=== PATIENT | male | born 1990 | race Caucasian/White ===

== ENCOUNTER 2016-04-18 09:59 | Emergency (ER) | payer SELFPAY ==
[~2016-04-18] VITALS: Ht 177.8 cm; Wt 106.8 kg
[~2016-04-18 09:59] MED LIST: ALBU8.5H IH; LORA10TA7 PO
[2016-04-18 13:41] VITALS: BP 128/84
== END 2016-04-18 13:43 | disposition home or self-care (01) ==
LOC: EMS 10:00
DX: F12.90 Cannabis use, unspecified, uncomplicated (principal); R11.2 Nausea with vomiting, unspecified; J45.909 Unspecified asthma, uncomplicated; F17.210 Nicotine dependence, cigarettes, uncomplicated
CPT/HCPCS: 99283

== ENCOUNTER 2021-06-28 20:01 | Inpatient (IN) | payer MEDICAID, OTHER ==
[~2021-06-28] VITALS: Ht 172.7 cm; Wt 86.9 kg
[~2021-06-28 20:01] MED LIST changes: -ALBU8.5H IH; +ALBU8.5H8 IH
[2021-06-28 20:46] LABS: BASOPHILS % (AUTO) 0.7 % (0.0-2.0); EOSINOPHILS % (AUTO) 0.3 % (1.0-6.0); HEMATOCRIT 42.3 % (41-53); HEMOGLOBIN 14.3 g/dL (13.5-17.5); LYMPHOCYTES # (AUTO) 2.3 K/uL (1.0-4.8); LYMPHOCYTES % (AUTO) 44.8 % (22.0-44.0); MEAN CORPUSCULAR HEMOGLOBIN 31.7 pg (26.0-34.0); MEAN CORPUSCULAR HGB CONC 33.8 G/dL (31.0-37.0); MEAN CORPUSCULAR VOLUME 94 fL (80-100); MONOCYTES # (AUTO) 0.3 K/uL (0.1-1.0); MONOCYTES % (AUTO) 6.2 % (2.0-9.0); NEUTROPHILS # (AUTO) 2.5 K/uL (1.8-7.7); PLATELET COUNT (AUTO) 187 K/uL (150-450); RED BLOOD CELL COUNT(AUTO) 4.51 MIL/uL (4.50-5.90); RED CELL DISTRIBUTION WIDTH 13.8 % (11.5-14.5)
[2021-06-28 20:50] LABS: COVID AG,FIA SOURCE NASAL SWAB
[2021-06-28 20:54] LABS: ANION GAP 14 mmol/L (8-16); CALCIUM, TOTAL 8.5 mg/dL (8.8-10.5); CARBON DIOXIDE 26 mmol/L (22-29); CHLORIDE 104 mmol/L (98-107); CREATININE 0.88 mg/dL (0.60-1.30); GLOMERULAR FILTR. RATE CALC > 60 mL/min (>60); GLUCOSE,RANDOM 123 mg/dL (70-110); POTASSIUM 3.7 mmol/L (3.5-5.1); SODIUM SERUM 144 mmol/L (136-145); UREA NITROGEN, BLOOD 8 mg/dL (7-18)
[2021-06-28 21:00] LABS: ALANINE AMINOTRANSFERASE 47 U/L (12-78); ALBUMIN 4.2 g/dL (3.4-5.0); ALKALINE PHOSPHATASE 59 U/L (46-116); ASPARTATE AMINOTRANSFERASE 39 U/L (15-37); BILIRUBIN,TOTAL 0.2 mg/dL (0.1-1.0); TOTAL PROTEIN, SERUM 8.2 g/dL (6.4-8.2)
[2021-06-28 23:26] LABS: LIPASE 540 U/L (73-393)
[2021-06-29] VITALS (7 sets, daily range): BP systolic 117–144; BP diastolic 64–88
[2021-06-29] MEDS: LORazepam 2 MG TABLET PO PRN ×2 (00:01→13:19)
[2021-06-29] MEDS ORDERED: MAGNESIUM HYDROXIDE SUSPENSION 30 ML UDCUP PO PRN (07:00)
[2021-06-29] MEDS ORDERED: DOCUSATE SODIUM 100 MG CAPSULE PO PRN (07:00)
[2021-06-29] MEDS ORDERED: ALBUTEROL SULFATE HFA 90 MCG/PUFF 8 GM INHALER IH PRN (07:00)
[2021-06-29] MEDS ORDERED: PETROLATUM,WHITE 28 GM JELLY TP PRN (07:00)
[2021-06-29] MEDS ORDERED: IBUPROFEN 400 MG TABLET PO PRN (07:00)
[2021-06-29] MEDS ORDERED: ONDANSETRON HCL 4 MG TABLET PO PRN (07:00)
[2021-06-29] MEDS ORDERED: GuaiFENesin/D-METHORPHAN [SUGAR-FREE] 200-20MG/10 ML SYRUP UDCUP PO PRN (07:00)
[2021-06-29] MEDS ORDERED: MAG HYDROX/AL HYDROX/SIMETH ES 30 ML SUSPENSION UDCUP PO PRN (07:00)
[2021-06-29] MEDS ORDERED: ACETAMINOPHEN 325 MG TABLET PO PRN (07:00)
[2021-06-29] MEDS ORDERED: LOPERAMIDE HCL 2 MG CAPSULE PO PRN (07:00)
[2021-06-29] MEDS ORDERED: CloNIDine HCL 0.1 MG TABLET PO PRN (07:00)
[2021-06-29] MEDS: LORATADINE 10 MG TABLET PO SCH (08:45)
[2021-06-29] MEDS ORDERED: LORazepam 2 MG TABLET PO PRN (11:15)
[2021-06-29] MEDS ORDERED: CYANOCOBALAMIN 1,000 MCG/ML VIAL IM ONE (14:00)
[2021-06-29] MEDS: FOLIC ACID 1 MG TABLET PO SCH (14:22)
[2021-06-29] MEDS: MULTIVITAMINS WITH MINERALS, THERAPEUTIC TABLET PO SCH (14:22)
[2021-06-29] MEDS: LORazepam 2 MG TABLET PO SCH ×2 (16:52→21:01)
[2021-06-29] MEDS: HALOPERIDOL 5 MG TABLET PO PRN (16:52)
[2021-06-29] MEDS: THIAMINE 100 MG TABLET PO SCH (16:52)
[2021-06-29] MEDS: ESCITALOPRAM OXALATE 10 MG TABLET PO SCH (18:19)
[2021-06-30] VITALS (7 sets, daily range): BP systolic 128–151; BP diastolic 75–83
[2021-06-30] MEDS ORDERED: LORazepam 2 MG TABLET PO PRN (07:00)
[2021-06-30] MEDS: MULTIVITAMINS WITH MINERALS, THERAPEUTIC TABLET PO SCH (10:35)
[2021-06-30] MEDS: ESCITALOPRAM OXALATE 10 MG TABLET PO SCH (10:36)
[2021-06-30] MEDS: FOLIC ACID 1 MG TABLET PO SCH (10:36)
[2021-06-30] MEDS: THIAMINE 100 MG TABLET PO SCH ×2 (10:36→16:32)
[2021-06-30] MEDS: LORATADINE 10 MG TABLET PO SCH (10:54)
[2021-06-30] MEDS: LORazepam 2 MG TABLET PO SCH ×2 (16:32→20:24)
[2021-07-01] MEDS: LORazepam 2 MG TABLET PO SCH ×4 (08:17→20:10)
[2021-07-01] MEDS: ESCITALOPRAM OXALATE 10 MG TABLET PO SCH (08:17)
[2021-07-01] MEDS: FOLIC ACID 1 MG TABLET PO SCH (08:17)
[2021-07-01] MEDS: MULTIVITAMINS WITH MINERALS, THERAPEUTIC TABLET PO SCH (08:17)
[2021-07-01] MEDS: THIAMINE 100 MG TABLET PO SCH ×2 (08:17→16:16)
[2021-07-01] MEDS: LORATADINE 10 MG TABLET PO SCH (08:17)
[2021-07-01 08:19] VITALS: BP 102/59
[2021-07-01 16:08] VITALS: BP 126/60
[2021-07-01] MEDS: NICOTINE 14 MG/24 HOUR PATCH TD PRN (17:00)
[2021-07-01] MEDS: HALOPERIDOL 5 MG TABLET PO PRN (18:00)
[2021-07-02] MEDS ORDERED: LORazepam 1 MG TABLET PO PRN (07:00)
[2021-07-02 08:04] VITALS: BP 115/52
[2021-07-02] MEDS: MULTIVITAMINS WITH MINERALS, THERAPEUTIC TABLET PO SCH (08:17)
[2021-07-02] MEDS: LORazepam 1 MG TABLET PO SCH ×4 (08:17→20:17)
[2021-07-02] MEDS: THIAMINE 100 MG TABLET PO SCH ×2 (08:17→16:17)
[2021-07-02] MEDS: FOLIC ACID 1 MG TABLET PO SCH (08:17)
[2021-07-02] MEDS: ESCITALOPRAM OXALATE 10 MG TABLET PO SCH (08:17)
[2021-07-02] MEDS: LORATADINE 10 MG TABLET PO SCH (08:18)
[2021-07-02] MEDS: NICOTINE 14 MG/24 HOUR PATCH TD PRN (08:30)
[2021-07-02 16:13] VITALS: BP 117/83
[2021-07-02] MEDS: HALOPERIDOL 5 MG TABLET PO PRN (19:00)
[2021-07-02] MEDS: ZOLPIDEM TARTRATE 10 MG TABLET PO PRN (20:37)
[2021-07-03] MEDS ORDERED: LORazepam 1 MG TABLET PO PRN (07:00)
[2021-07-03] MEDS: FOLIC ACID 1 MG TABLET PO SCH (08:03)
[2021-07-03] MEDS: LORATADINE 10 MG TABLET PO SCH (08:03)
[2021-07-03] MEDS: THIAMINE 100 MG TABLET PO SCH ×2 (08:03→16:21)
[2021-07-03] MEDS: LORazepam 2 MG TABLET PO PRN (08:03)
[2021-07-03] MEDS: MULTIVITAMINS WITH MINERALS, THERAPEUTIC TABLET PO SCH (08:04)
[2021-07-03] MEDS: ESCITALOPRAM OXALATE 10 MG TABLET PO SCH (08:04)
[2021-07-03 08:16] VITALS: BP 107/60
[2021-07-03 16:14] VITALS: BP 129/60
[2021-07-03] MEDS: HALOPERIDOL 5 MG TABLET PO PRN (19:31)
[2021-07-03] MEDS: ZOLPIDEM TARTRATE 10 MG TABLET PO PRN (20:25)
[2021-07-04] MEDS: LORazepam 2 MG TABLET PO PRN (01:45)
[2021-07-04] MEDS: HALOPERIDOL 5 MG TABLET PO PRN (01:46)
[2021-07-04] MEDS ORDERED: NALTREXONE HCL 50 MG TABLET PO SCH (09:30)
[2021-07-04] MEDS: FOLIC ACID 1 MG TABLET PO SCH (09:39)
[2021-07-04] MEDS: NICOTINE 14 MG/24 HOUR PATCH TD PRN (09:39)
[2021-07-04] MEDS: THIAMINE 100 MG TABLET PO SCH (09:39)
[2021-07-04] MEDS: LORATADINE 10 MG TABLET PO SCH (09:39)
[2021-07-04] MEDS: ESCITALOPRAM OXALATE 10 MG TABLET PO SCH (09:39)
[2021-07-04] MEDS: MULTIVITAMINS WITH MINERALS, THERAPEUTIC TABLET PO SCH (09:39)
[2021-07-04] MEDS ORDERED: ESCI10 PO (10:18)
[2021-07-04] MEDS ORDERED: NALT50TA PO (10:18)
[2021-07-04 16:00] VITALS: BP 153/94
== END 2021-07-04 15:50 | disposition home or self-care (01) | DRG 751 ==
LOC: EMS 20:12 → 3EC 06-29 05:08
PROVIDERS: ADMIT Psychiatry & Neurology Child & Adolescent Psychiatry; ATTEND Psychiatry & Neurology Child & Adolescent Psychiatry
DX: F33.2 Major depressive disorder, recurrent severe without psychotic features (principal); R45.851 Suicidal ideations; F22 Delusional disorders; F10.229 Alcohol dependence with intoxication, unspecified; F43.10 Post-traumatic stress disorder, unspecified; J31.0 Chronic rhinitis; J45.909 Unspecified asthma, uncomplicated; Y90.8 Blood alcohol level of 240 mg/100 ml or more; Z20.822 Contact with and (suspected) exposure to COVID-19; F41.9 Anxiety disorder, unspecified; R74.8 Abnormal levels of other serum enzymes; R94.31 Abnormal electrocardiogram [ECG] [EKG]; F17.210 Nicotine dependence, cigarettes, uncomplicated; F12.10 Cannabis abuse, uncomplicated; Z71.41 Alcohol abuse counseling and surveillance of alcoholic; Z91.013 Allergy to seafood; Z71.51 Drug abuse counseling and surveillance of drug abuser
CPT/HCPCS: 80053; 83690; 84484; 85025; 93005; 99285; G0480; J3420

== ENCOUNTER 2021-07-20 19:24 | Emergency (ER) | payer MEDICAID, OTHER ==
[~2021-07-20] VITALS: Ht 172.7 cm; Wt 86.9 kg
[~2021-07-20 19:24] MED LIST changes: -ALBU8.5H8 IH; +ESCI10 PO; +NALT50TA PO
[2021-07-20] MEDS ORDERED: MORPHINE SULFATE 4 MG/ML SYRINGE IVP ONE (20:00)
[2021-07-20] MEDS ORDERED: PERTUSS(ACELL),DIPH,TET VAC/PF 0.5 ML SYRINGE IM. ONE (20:00)
[2021-07-20] MEDS ORDERED: ONDANSETRON HCL 4 MG/2 ML VIAL IVP ONE (21:00)
[2021-07-20] MEDS ORDERED: HYDROCODONE/ACETAMINOPHEN 5-325 MG TABLET PO ONE (23:15)
[2021-07-20] MEDS ORDERED: FentaNYL CITRATE PF 100 MCG/2 ML VIAL IVP ONE (23:15)
[2021-07-21] MEDS ORDERED: FentaNYL CITRATE PF 100 MCG/2 ML VIAL IVP ONE (02:15)
[2021-07-21] MEDS ORDERED: CEPH-558 PO (04:45)
[2021-07-21 04:46] VITALS: BP 127/57
== END 2021-07-21 04:30 | disposition home or self-care (01) ==
LOC: EMS 19:26
DX: S01.81XA Laceration without foreign body of other part of head, initial encounter (principal); S09.90XA Unspecified injury of head, initial encounter; F10.229 Alcohol dependence with intoxication, unspecified; F32.9 Major depressive disorder, single episode, unspecified; J45.909 Unspecified asthma, uncomplicated; F12.90 Cannabis use, unspecified, uncomplicated; F17.210 Nicotine dependence, cigarettes, uncomplicated; Z79.899 Other long term (current) drug therapy; Y90.9 Presence of alcohol in blood, level not specified
CPT/HCPCS: 12013; 70450; 70486; 90471; 90715; 96374; 96375; 96376; 99285; J2270; J2405; J3010 ×2

== ENCOUNTER 2021-07-27 15:13 | Emergency (ER) | payer OTHER ==
[~2021-07-27] VITALS: Ht 172.7 cm; Wt 92.3 kg
[~2021-07-27 15:13] MED LIST changes: +CEPH-558 PO
[2021-07-27 18:31] VITALS: BP 124/65
== END 2021-07-27 18:38 | disposition home or self-care (01) ==
LOC: EMS 15:15
DX: S05.31XD Ocular laceration without prolapse or loss of intraocular tissue, right eye, subsequent encounter (principal); F10.20 Alcohol dependence, uncomplicated; J45.909 Unspecified asthma, uncomplicated; F32.A Depression, unspecified; F12.90 Cannabis use, unspecified, uncomplicated; Z86.59 Personal history of other mental and behavioral disorders; Z91.013 Allergy to seafood; Y09 Assault by unspecified means
CPT/HCPCS: 99281; Z7502

== ENCOUNTER 2021-08-02 16:45 | Emergency (ER) | payer OTHER ==
[~2021-08-02] VITALS: Ht 175.3 cm; Wt 90.9 kg
[~2021-08-02 16:45] MED LIST changes: -CEPH-558 PO
[2021-08-02] MEDS ORDERED: BACITRACIN 0.9 GM PACKET OINTMENT TP ONE (17:45)
[2021-08-02 18:34] VITALS: BP 124/65
== END 2021-08-02 18:39 | disposition home or self-care (01) ==
LOC: EMS 16:45
DX: S01.111D Laceration without foreign body of right eyelid and periocular area, subsequent encounter (principal); J45.909 Unspecified asthma, uncomplicated; F32.9 Major depressive disorder, single episode, unspecified; F12.90 Cannabis use, unspecified, uncomplicated; Z48.02 Encounter for removal of sutures; Z91.013 Allergy to seafood; Z79.899 Other long term (current) drug therapy; W45.8XXD Other foreign body or object entering through skin, subsequent encounter
CPT/HCPCS: 99281; Z7502

== ENCOUNTER 2021-09-05 11:26 | Inpatient (IN) | payer MEDICAID, OTHER ==
[~2021-09-05] VITALS: Ht 172.7 cm; Wt 87.8 kg
[2021-09-05 13:23] LABS: BASOPHILS % (AUTO) 0.8 % (0.0-2.0); EOSINOPHILS % (AUTO) 0.1 % (1.0-6.0); HEMOGLOBIN 14.3 g/dL (13.5-17.5); LYMPHOCYTES # (AUTO) 2.4 K/uL (1.0-4.8); MEAN CORPUSCULAR HEMOGLOBIN 31.4 pg (26.0-34.0); MEAN CORPUSCULAR VOLUME 93 fL (80-100); MONOCYTES # (AUTO) 0.4 K/uL (0.1-1.0); NEUTROPHILS # (AUTO) 6.3 K/uL (1.8-7.7); NEUTROPHILS % (AUTO) 69.1 % (40.0-70.0); PLATELET COUNT (AUTO) 249 K/uL (150-450); RED BLOOD CELL COUNT(AUTO) 4.54 MIL/uL (4.50-5.90); RED CELL DISTRIBUTION WIDTH 14.5 % (11.5-14.5)
[2021-09-05 13:34] LABS: ANION GAP 17 mmol/L (8-16); CALCIUM, TOTAL 8.7 mg/dL (8.8-10.5); CARBON DIOXIDE 25 mmol/L (22-29); CHLORIDE 100 mmol/L (98-107); CREATININE 0.87 mg/dL (0.60-1.30); GLOMERULAR FILTR. RATE CALC > 60 mL/min (>60); GLUCOSE,RANDOM 96 mg/dL (70-110); POTASSIUM 3.8 mmol/L (3.5-5.1); SODIUM SERUM 142 mmol/L (136-145); UREA NITROGEN, BLOOD 6 mg/dL (7-18)
[2021-09-05 13:40] LABS: ALANINE AMINOTRANSFERASE 37 U/L (12-78); ALBUMIN 4.4 g/dL (3.4-5.0); ALKALINE PHOSPHATASE 63 U/L (46-116); ASPARTATE AMINOTRANSFERASE 35 U/L (15-37); BILIRUBIN,TOTAL 0.3 mg/dL (0.1-1.0); TOTAL PROTEIN, SERUM 8.5 g/dL (6.4-8.2)
[2021-09-05] MEDS ORDERED: HALOPERIDOL 5 MG TABLET PO PRN (14:45)
[2021-09-05] MEDS ORDERED: ChlordiazePOXIDE HCL 25 MG CAPSULE PO PRN (14:45)
[2021-09-05] MEDS ORDERED: ZOLPIDEM TARTRATE 10 MG TABLET PO PRN (14:45)
[2021-09-05 14:51] LABS: APPEARANCE,URINE CLEAR (CLEAR); BILIRUBIN,URINE NEGATIVE (NEGATIVE); GLUCOSE, URINE (UA) NEGATIVE (NEGATIVE); KETONES,URINE TRACE mg/dL (NEGATIVE); LEUKOCYTE ESTERASE ,URINE NEGATIVE (NEGATIVE); NITRATE,URINE NEGATIVE (NEGATIVE); OCCULT BLOOD,URINE NEGATIVE (NEGATIVE); PROTEIN,URINE NEGATIVE (NEGATIVE); SPECIFIC GRAVITIY, URINE 1.006 (1.003-1.030); UROBILINOGEN,URINE <=1.0 mg/dL (<=1.0)
[2021-09-05 14:56] LABS: AMPHET/METH SCREEN,URINE NEGATIVE (NEGATIVE); BARBITURATE SCREEN, URINE NEGATIVE (NEGATIVE); BENZODIAZEPINES SCREEN,URINE NEGATIVE (NEGATIVE); CANNABINOID SCREEN,URINE POSITIVE (NEGATIVE); COCAINE SCREEN,URINE NEGATIVE (NEGATIVE); METHADONE SCREEN, URINE NEGATIVE (NEGATIVE); OPIATE SCREEN,URINE NEGATIVE (NEGATIVE)
[2021-09-05 15:18] LABS: PHENCYCLIDINE SCREEN,URINE NEGATIVE (NEGATIVE)
[2021-09-06] VITALS (8 sets, daily range): BP systolic 110–138; BP diastolic 61–90
[2021-09-06 01:54] LABS: COVID AG,FIA SOURCE NASAL SWAB
[2021-09-06] MEDS ORDERED: IBUPROFEN 400 MG TABLET PO PRN (06:15)
[2021-09-06] MEDS ORDERED: GuaiFENesin/D-METHORPHAN [SUGAR-FREE] 200-20MG/10 ML SYRUP UDCUP PO PRN (06:15)
[2021-09-06] MEDS ORDERED: ACETAMINOPHEN 325 MG TABLET PO PRN (06:15)
[2021-09-06] MEDS ORDERED: PETROLATUM,WHITE 28 GM JELLY TP PRN (06:15)
[2021-09-06] MEDS ORDERED: MAG HYDROX/AL HYDROX/SIMETH ES 30 ML SUSPENSION UDCUP PO PRN (06:15)
[2021-09-06] MEDS ORDERED: LOPERAMIDE HCL 2 MG CAPSULE PO PRN (06:15)
[2021-09-06] MEDS ORDERED: CloNIDine HCL 0.1 MG TABLET PO PRN (06:15)
[2021-09-06] MEDS ORDERED: DOCUSATE SODIUM 100 MG CAPSULE PO PRN (06:15)
[2021-09-06] MEDS ORDERED: ONDANSETRON HCL 4 MG TABLET PO PRN (06:15)
[2021-09-06] MEDS ORDERED: MAGNESIUM HYDROXIDE SUSPENSION 30 ML UDCUP PO PRN (06:15)
[2021-09-06] MEDS ORDERED: ALBUTEROL SULFATE HFA 90 MCG/PUFF 8 GM INHALER IH PRN (06:15)
[2021-09-06] MEDS ORDERED: ChlordiazePOXIDE HCL 25 MG CAPSULE PO PRN (07:00)
[2021-09-06] MEDS: LORATADINE 10 MG TABLET PO SCH (08:55)
[2021-09-06] MEDS: ChlordiazePOXIDE HCL 25 MG CAPSULE PO SCH ×4 (08:55→20:16)
[2021-09-06] MEDS ORDERED: NICOTINE 14 MG/24 HOUR PATCH TD SCH (09:00)
[2021-09-06] MEDS: NICOTINE 14 MG/24 HOUR PATCH TD PRN (09:54)
[2021-09-06] MEDS: ESCITALOPRAM OXALATE 10 MG TABLET PO SCH (15:57)
[2021-09-07 08:00] VITALS: BP 145/89
[2021-09-07] MEDS: LORATADINE 10 MG TABLET PO SCH (08:44)
[2021-09-07] MEDS: ChlordiazePOXIDE HCL 25 MG CAPSULE PO SCH ×2 (08:45→12:38)
[2021-09-07] MEDS: ESCITALOPRAM OXALATE 10 MG TABLET PO SCH (08:45)
[2021-09-07] MEDS: NICOTINE 14 MG/24 HOUR PATCH TD PRN (08:48)
[2021-09-07] MEDS ORDERED: ESCI10 PO (12:12)
[2021-09-08] MEDS ORDERED: ChlordiazePOXIDE HCL 10 MG CAPSULE PO PRN (07:00)
[2021-09-08] MEDS ORDERED: ChlordiazePOXIDE HCL 10 MG CAPSULE PO SCH (09:00)
[2021-09-09] MEDS ORDERED: ChlordiazePOXIDE HCL 10 MG CAPSULE PO PRN (07:00)
== END 2021-09-07 14:30 | disposition home or self-care (01) | DRG 751 ==
LOC: EMS 11:26 → 3EI 14:42 → UNDOADMIN 14:42
PROVIDERS: ADMIT Psychiatry & Neurology Child & Adolescent Psychiatry; ATTEND Psychiatry & Neurology Child & Adolescent Psychiatry
DX: F33.2 Major depressive disorder, recurrent severe without psychotic features (principal); R45.851 Suicidal ideations; F10.20 Alcohol dependence, uncomplicated; F43.10 Post-traumatic stress disorder, unspecified; J45.909 Unspecified asthma, uncomplicated; F99 Mental disorder, not otherwise specified; F19.10 Other psychoactive substance abuse, uncomplicated; Z20.822 Contact with and (suspected) exposure to COVID-19; Z87.891 Personal history of nicotine dependence
CPT/HCPCS: 80053; 81003; 85025; 99285; G0480

== ENCOUNTER 2024-09-20 19:47 | Emergency (ER) | payer MEDICAID, OTHER ==
[~2024-09-20] VITALS: Ht 172.7 cm; Wt 72.7 kg
[~2024-09-20 19:47] MED LIST changes: -NALT50TA PO; +NALT50TA6 PO
[2024-09-20 20:31] LABS: PLATELET COUNT (AUTO) 300 K/uL (150-450); RED BLOOD CELL COUNT(AUTO) 3.97 MIL/uL (4.50-5.90); RED CELL DISTRIBUTION WIDTH 14.2 % (11.5-14.5); WHITE BLOOD COUNT (AUTO) 6.2 K/uL (4.5-11.0)
[2024-09-20 20:40] LABS: CALCIUM, TOTAL 8.6 mg/dL (8.8-10.5); CREATININE 0.98 mg/dL (0.60-1.30); GLOMERULAR FILTR. RATE CALC > 60 mL/min (>60); GLUCOSE,RANDOM 81 mg/dL (70-110); SODIUM SERUM 140 mmol/L (136-145); UREA NITROGEN, BLOOD 14 mg/dL (7-18)
[2024-09-20 20:48] LABS: TROPONIN I-HIGH SENSITIVITY Less Than 4 ng/L (<76)
[2024-09-20] MEDS: KETOROLAC TROMETHAMINE 60 MG/2 ML VIAL IM ONE (21:04)
[2024-09-20] MEDS: ACETAMINOPHEN 500 MG TABLET PO ONE (21:04)
[2024-09-20] MEDS: OMEPRAZOLE 20 MG CAPSULE PO ONE (21:06)
[2024-09-20 21:21] VITALS: BP 106/82; PULSE 71; RESP 18; TEMP 98.005280; O2SAT 99
[2024-09-20] MEDS ORDERED: LORA2TAB18 PO (21:32)
== END 2024-09-20 21:47 | disposition home or self-care (01) ==
LOC: EMS 19:47
DX: R07.89 Other chest pain (principal); F15.10 Other stimulant abuse, uncomplicated; R45.851 Suicidal ideations; F32.A Depression, unspecified; J45.909 Unspecified asthma, uncomplicated; F17.210 Nicotine dependence, cigarettes, uncomplicated; F20.9 Schizophrenia, unspecified; F12.90 Cannabis use, unspecified, uncomplicated; Z79.899 Other long term (current) drug therapy; Z91.013 Allergy to seafood
CPT/HCPCS: 99285; 71045; 80048; 84484; 85025; 36415; 93005; 96372; J1885